=== PATIENT | female | born 1940 | race Caucasian/White ===

== ENCOUNTER → 2016-06-20 | Outpatient (CLI) | payer MEDICARE ==
[~2016-06-20] MED LIST: ANTIVERT **IA12.5 MG PO; ASPIRIN LO-DOSE81 MG PO; BETASERON0.3 MG SUB-Q; BETOPTIC0.5 % OPHTH; BIOTIN5000 MCG PO; CALCIUM CARBON600 MG PO; COLACE100 MG PO; DECADRON1 MG PO; DESYREL50 MG PO; DICYCLOMINE HCL20 MG PO; ELAVIL25 MG PO; EVISTA60 MG PO; EXCEDRIN EXTRA1 TAB PO; FLEXERIL10 MG PO; HYDRODIURIL25 MG PO; LEVOTHROID(SYN75 MCG PO; MAGNESIUM400 M1 PO; MIRALAX17 GM PO; MOTRIN600 MG PO; NEURONTIN300 MG PO; NORVASC5 MG PO; OCUVITE WITH L1 EACH PO; PEPCID20 MG PO; PERCOCET 5-3251 EACH PO; PREVACID15 MG PO; THERA-VITE W/ B1 TAB PO; TOPROL XL 5050 MG PO; ULTRAM50 MG PO; VITAMIN B-12500 MCG PO; VITAMIN C1000 MG PO; VITAMIN D50000 UNIT PO; XALATAN2.5 ML OPHTH
== END | disposition disaster alternative care site (69) ==
LOC: GRAD 06-13 10:00
DX: M54.2 Cervicalgia (principal); M48.54XD Collapsed vertebra, not elsewhere classified, thoracic region, subsequent encounter for fracture with routine healing; M48.56XD Collapsed vertebra, not elsewhere classified, lumbar region, subsequent encounter for fracture with routine healing; M51.26 Other intervertebral disc displacement, lumbar region; M48.06 Spinal stenosis, lumbar region; M47.817 Spondylosis without myelopathy or radiculopathy, lumbosacral region; M50.322 Other cervical disc degeneration at C5-C6 level; M50.323 Other cervical disc degeneration at C6-C7 level; M48.02 Spinal stenosis, cervical region

== ENCOUNTER 2016-07-05 10:08 | Inpatient (IN) | payer MEDICARE ==
[~2016-07-05] VITALS: Ht 157.5 cm; Wt 62.0 kg
--- NOTE | ~2016-07-05 | OR ---
PATIENT'S NAME: RAIMUNDO BAIRD [facility] AGE: 75 Y [address] ROOM: [place] [id number] LOCATION: [facility] ADMIT DATE: 07/05/2016 OR/Procedure Report DISCHARGE DATE: FAMILY PHYSICIAN: Stanley Laboy MD ATTENDING PHYSICIAN: SAI CESAR SURGEON: Sai Cesar MD DIRECTOR OF REGULATORY AFFAIRS: DATE OF PROCEDURE: 07/05/2016 ANESTHESIOLOGIST: Basil Tracy MD. ANESTHESIA: General. COMPLICATIONS: None. ESTIMATED BLOOD LOSS: Minimal. PREOPERATIVE DIAGNOSES: 1. 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 2. C6-7 severe spinal stenosis with myelopathy. 3. Bilateral C6, bilateral C7 foraminal stenosis. POSTOPERATIVE DIAGNOSES: 1. 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 2. C6-7 severe spinal stenosis with myelopathy. 3. Bilateral C6, bilateral C7 foraminal stenosis. PROCEDURE PERFORMED: 1. C5-6 anterior cervical diskectomy and decompression for spinal stenosis. 2. C6-7 anterior cervical diskectomy and decompression for spinal stenosis. 3. Bilateral C6, bilateral C7 foraminotomy and decompression. 4. C5-6 anterior instrumented arthrodesis. 5. C6-7 anterior instrumented arthrodesis. 6. Insertion of cortical cancellous structural allograft spacers into C5-6, C6-7 disk spaces (system used is Medtronic Cornerstone system). 7. Insertion of an anterior cervical titanium plate across C5-C7 (system used is Medtronic [place] Elite system). 8. Intraoperative fluoroscopy. CLINICAL HISTORY: The above patient was diagnosed clinically and on imaging to have the above-mentioned diagnoses. I recommended the above mentioned surgery to try to decompress the spinal cord, relieve her symptoms, and prevent further neurologic decline. The patient was interested in proceeding, so she was brought in for the surgery. PATIENT'S NAME: RAIMUNDO BAIRD [facility] AGE: 75 Y [address] ROOM: [place] [id number] LOCATION: [facility] ADMIT DATE: 07/05/2016 OR/Procedure Report DISCHARGE DATE: FAMILY PHYSICIAN: Stanley Laboy MD ATTENDING PHYSICIAN: SAI CESAR DESCRIPTION OF PROCEDURE: The patient was seen in the preoperative care unit and the correct site was marked, and she was transferred to the main operating theater, was given general anesthetic, and underwent endotracheal intubation without complications. Preoperative antibiotics and steroids were given. Calf compressors were used throughout the procedure. The patient was positioned supine on the table and all her joints and bony prominences were securely padded. The patient's neck was placed on a gel padded beanbag in mild extension. The shoulders were taped away for intraoperative fluoroscopy. A transverse skin incision was marked on the right hand side at C6 level. The surgical site was prepped and draped as per usual. The proposed skin incision was infiltrated with 0.25% Marcaine with epinephrine. Skin was sharply opened down to the subplatysmal plane, then subplatysmal dissection was carried out both cranially and caudally. Then, I dissected through the middle cervical fascia down to the prevertebral fascia which was coagulated and incised to expose the anterior surface of the spine. The correct level was confirmed using intraoperative fluoroscopy. As expected, there were very large anterior projecting osteophytes at C5-6 and C6- 7 as well as severe stenosis and loss of the disk space height at those two levels. I started by elevating the longus colli muscles at C5-6 and C6-7 level. Self- retaining retractor was inserted. Then, I proceeded to perform the diskectomies. I started at C5-6 level. As expected, there was severe stenosis at C5-6 level with significant disk space height loss. Distracting pins were inserted into C5 and C6 vertebral body, and attempted distraction across the disk space, did not achieve significant distraction. The diskectomy and the arthrodesis at this level was substantially difficult and required more time and caution to perform. I used a high-speed Midas Terry drill to drill through the disk down to the posterior aspect of the disk which had very large posterior projecting osteophytes. Those osteophytes were drilled away using high-speed Midas Terry drill, and the thecal sac was decompressed. Then, I completed the decompression of the spinal cord using Kerrison rongeur. I then performed bilateral C6 foraminotomy without any complications. Then, I proceeded to perform the diskectomy at C6-7 level. Distracting pins were inserted in C6 and C7, and again, no significant distraction was achieved given the severe stenosis and severe loss of disk space height. The diskectomy part was substantially difficult and required more time and caution to perform. I used Kerrison rongeur, pituitary rongeur, and different sized curettes to do the diskectomy. I got down to the posterior aspect of the disk, and as expected, there were large posterior projecting osteophytes that were causing significant spinal cord compression. I managed to get into the PATIENT'S NAME: RAIMUNDO BAIRD [facility] AGE: 75 Y [address] ROOM: [address] [address] LOCATION: [facility] ADMIT DATE: 07/05/2016 OR/Procedure Report DISCHARGE DATE: FAMILY PHYSICIAN: Stanley Laboy MD ATTENDING PHYSICIAN: SAI CESAR epidural plane and those osteophytes were completely removed. The thecal sac was decompressed. Then, I turned my attention to perform the foraminotomies at C6-7 level. I did that using Kerrison rongeur without complications. I was satisfied with that. Then, I proceeded to insert the cortical cancellous structural allograft spacers. Those were inserted into C5-6 and C6-7 disks without complications. Then, an anterior cervical titanium plate size 33.5 was inserted across C5-6 and C6-7 disks and that was anchored to the bone using 13 x 4 mm self-tapping screws. The plate was finally locked. Final x-ray was performed and that showed satisfactory decompression and hardware placement. The wound was copiously irrigated with bacitracin-containing irrigation. Hemostasis was achieved using bipolar cautery. The wound was then closed in layers with 2-0 Vicryl to the platysma, 2-0 Vicryl to the subcutaneous tissue, and wilmar to the skin. Sterile dressing was applied. At the end of the operation, the instrument and sponge counts were correct. The patient tolerated the operation without complications. This case was substantially difficult given the severe stenosis at C5-6 and C6- 7 levels and that required more time and caution to perform in order to achieve satisfactory decompression and prevent morbidity intraoperatively. MD GRACE CARTER/belkis /[id number] CC: Stanley Laboy MD d: 07/05/[id number] t: 07/07/[id number], OPERATIVE SUMMARY
--- NOTE | ~2016-07-05 | DS ---
PATIENT'S NAME: RAIMUNDO BAIRD [facility] AGE: 75 Y [address] ROOM: [place] [address] LOCATION: [facility] ADMIT DATE: 07/05/2016 Discharge Summary DISCHARGE DATE: 07/06/2016 FAMILY PHYSICIAN: Stanley Laboy MD ATTENDING PHYSICIAN: Sai Forman ADMISSION MAIN DIAGNOSIS: C5-C6, C6-C7 severe spinal stenosis with myelopathy. DISCHARGE MAIN DIAGNOSIS: C5-C6, C6-C7 severe spinal stenosis with myelopathy. PROCEDURES DURING ADMISSION: 1. C5-C6, C6-C7 anterior cervical diskectomy and instrumented fusion. 2. Bilateral C6, bilateral C7 foraminotomy and decompression. DISCHARGE INSTRUCTIONS AND FOLLOWUP APPOINTMENTS: 1. Myself on July 18, 2016, for staple removal. 2. [place] collar when mobilizing, soft neck collar when in bed. 3. Call my office for any concerns. 4. No heavy lifting, no neck twisting. MEDICATIONS ON DISCHARGE: 1. Resume all pre-admission medications as indicated in the discharge medications list. 2. Dexamethasone 2 mg p.o. b.i.d. for 2 days, then 2 mg p.o. once daily for 2 days, then stop. 3. Flexeril 10 mg p.o. every 8 hours p.r.n. HOSPITAL COURSE: The above patient was admitted electively to the hospital for the above-mentioned surgery. She underwent an unremarkable operation. Postoperatively, the patient did well. She had no new neurological symptoms or deficits. She mobilized well with physiotherapy and occupational therapy. She tolerated oral intake very well. On the day of discharge, she was examined. She continued to do well. Her pain was controlled. Her neurological examination was stable. The wound was healing very well with no evidence of infection or dehiscence. I reviewed the discharge instructions with the patient, and based on that, she was sent home. SAI FORMAN MD PATIENT'S NAME: RAIMUNDO BAIRD [facility] AGE: 75 Y [address] ROOM: [place] [address] LOCATION: [id number] ADMIT DATE: 07/05/2016 Discharge Summary DISCHARGE DATE: 07/06/2016 FAMILY PHYSICIAN: Stanley Laboy MD ATTENDING PHYSICIAN: Sai Forman/belkis /[id number] CC: Stanley Laboy MD d: 07/06/16 0815 t: 07/07/164, DISCHARGE SUMMARY
[~2016-07-05 10:08] MED LIST changes: -DECADRON1 MG PO; -FLEXERIL10 MG PO; -PEPCID20 MG PO
[2016-07-05 11:08] LABS: ALBUMIN 3.7 gm/dL (3.5-5.0); ALK PHOS 92 IU/L (33-138); ALT 75 IU/L (12-78); ANION GAP 13.6 (10.0-19.0); AST 86 IU/L (10-40); BLOOD UREA NITROGEN 12 mg/dL (6-24); CALCIUM 9.1 mg/dL (8.5-10.5); CHLORIDE 104 mMol/L (96-110); CO2 27 mMol/L (22-32); CREATININE 0.8 mg/dL (0.5-1.1); ESTIMATED GFR (MDRD EQUATION) > 60; POTASSIUM 3.6 mMol/L (3.7-5.1); SODIUM 141 mMol/L (135-145); TOTAL PROTEIN 7.8 g/dL (6.0-8.4)
[2016-07-05 11:11] LABS: TOTAL BILIRUBIN 0.4 mg/dL (0.0-1.5)
--- NOTE | 2016-07-05 19:33 | NUR ---
Significant Event: TO ROOM AT 1515...CSM GOOD IN ALL EXTREM. HAS HISTORY MULTI SCLER. IS ABLE TO TRANSFER WITH 1 ASSIST. HAD PERCET 1 TAB X2 LAST AT 1600. HAS SOFT AND VITSA NECK COLLERS....INC URINE, REPORTS THIS IS NORNAL FOR HER.... Follow up:
--- NOTE | 2016-07-06 04:48 | NUR ---
POD#1 ACDF C5-7, INCISION CDI, SOFT COLLAR ON WHEN IN BED, UP WITH SBA/FWW/GAIT BELT AND IS UNSTEADY AT TIMES DUE TO M.S. RIGHT HAND PIV SALINE LOCKED, GOOD PO INTAKE/OUTPUT. HAS A BM Q7DAYS PER PATIENT REPORT. VS WNL, PAIN CONTROLLED WITH PERCOCET LD@0330 AND FLEXERIL LD@0130 WITH GOOD RESULTS AND WILL REASSESS BEFORE SHIFT CHANGE. DC HOME ON DISCHARGE.
[2016-07-06] MEDS ORDERED: DECADRON1 MG PO (09:57)
[2016-07-06] MEDS ORDERED: COLACE100 MG PO (09:58)
[2016-07-06] MEDS ORDERED: PEPCID20 MG PO (10:03)
[2016-07-06] MEDS ORDERED: FLEXERIL10 MG PO (10:11)
--- NOTE | 2016-07-06 12:44 | NUR ---
Introduced self and care management services to patient and spouse at bedside. Going home today. Denies concerns about going home on discharge, denies needs. Has a walker at home. Spouse will assist at home as needed.
--- NOTE | 2016-07-06 14:31 | NUR ---
Discharge instructions reviewed with patient and . Reviewed all medications, s/s infection, when to call the doctor, care of dressing, shower guards, brace soft/hard, etc. Refer to discharge instructions for details. All questions answered. Encouraged to call doctor after discharge for any question/concerns. All belongings sent with patient. To front door per w/c.
== END 2016-07-06 12:10 | disposition disaster alternative care site (69) | DRG 472 ==
LOC: GSDC 10:08 → G3N 10:08 → GPOC 13:00 → G3N 14:38 → GSDC 14:39 → G3N 07-06 12:10
PROVIDERS: ADMIT Neurological Surgery
DX: M48.02 Spinal stenosis, cervical region (principal); M47.12 Other spondylosis with myelopathy, cervical region; G35 Multiple sclerosis; Z87.891 Personal history of nicotine dependence; Z79.82 Long term (current) use of aspirin
CPT/HCPCS: C1713; J0690; J1100; J1830; J2001; J2250; J2405; J7030